=== PATIENT | male | born 1955 | race Caucasian/White ===

== ENCOUNTER 2023-09-26 19:59 | Emergency (ER) | payer MEDICARE ==
[~2023-09-26] VITALS: Ht 180.3 cm; Wt 72.6 kg
[2023-09-26 21:31] VITALS: BP 141/96; TEMP 98.5; O2SAT 99
== END 2023-09-26 21:31 | disposition home or self-care (01) ==
LOC: ER 20:01
DX: K40.90 Unilateral inguinal hernia, without obstruction or gangrene, not specified as recurrent (principal); Z88.8 Allergy status to other drugs, medicaments and biological substances
CPT/HCPCS: A4606; A4663